=== PATIENT | female | born 1990 | race Caucasian/White ===

== ENCOUNTER → 2019-02-21 | Outpatient (CLI) | payer BC ==
--- NOTE | 2019-02-21 10:43 | MM ---
Reason for exam: screening (asymptomatic). Last mammogram was performed 9 years and 8 months ago. History: Family history of premenopausal breast cancer in sister at age 23 and breast cancer in paternal aunt. Taking hormonal contraceptives for 3 years beginning at age 16. Physical Findings: A clinical breast exam by your physician is recommended on an annual basis and results should be correlated with mammographic findings. MG 3D Screening Mammo W/Cad Bilateral CC and MLO view(s) were taken. Prior study comparison: June 27, 2009, left breast digital mammogram. February 08, 2007, bilateral anna screening mammogram, performed at [facility]. The breast tissue is heterogeneously dense. This may lower the sensitivity of mammography. No suspicious abnormality. No significant changes when compared with prior studies. ASSESSMENT: Negative, BI-RAD 1 RECOMMENDATION: Routine screening mammogram of both breasts in 1 year.
== END | disposition home or self-care (01) ==
LOC: RADMAMWWP 08:54
PROVIDERS: ATTEND Internal Medicine
DX: Z12.31 Encounter for screening mammogram for malignant neoplasm of breast (principal); Z84.81 Family history of carrier of genetic disease
CPT/HCPCS: 77063; 77067

== ENCOUNTER → 2021-02-03 | Outpatient (CLI) | payer BC ==
--- NOTE | 2021-02-04 06:51 | US ---
EXAMINATION TYPE: US kidneys/renal and bladder DATE OF EXAM: 02/03/2021 COMPARISON: CT March 25, 2014. Ultrasound kidneys March 14, 2015 CLINICAL HISTORY: R93.41 Abnormal findings on imaging. EXAM MEASUREMENTS: Right Kidney: 9.8 x 3.5 x 3.5 cm Left Kidney: 10.1 x 4.3 x 3.9 cm Right Kidney: No hydronephrosis or masses seen Left Kidney: Hydronephrosis vs. dilated renal pelvis. Bladder: anechoic Bilateral Jets seen: No just left jet. Mild fullness right renal pelvis extends into calyces. More moderate fullness left renal pelvis wit hout significant calyceal dilatation. Urinary bladder satisfactorily distended. IMPRESSION: Suspect new mild right-sided hydronephrosis. Redemonstration of more prominent but suspec deion extrarenal pelvis on the left. Consider follow-up.
== END | disposition home or self-care (01) ==
LOC: RADUSWWP 16:06
PROVIDERS: ATTEND Urology
DX: N13.30 Unspecified hydronephrosis (principal)
CPT/HCPCS: 76770

== ENCOUNTER → 2022-05-19 | Outpatient (CLI) | payer BC ==
--- NOTE | 2022-05-19 12:46 | XR ---
EXAMINATION TYPE: XR chest 2V DATE OF EXAM: 05/19/2022 COMPARISON: NONE HISTORY: Shortness of breath TECHNIQUE: Frontal and lateral views of the chest are obtained. FINDINGS: There is no focal air space opacity, pleural effusion, or pneumothorax seen. The cardiac silhouette size is within normal limits. The osseous structures are intact. IMPRESSION: No acute cardiopulmonary process.
== END | disposition home or self-care (01) ==
LOC: RADXRYALE 10:08
PROVIDERS: ATTEND Physician Assistant
DX: R06.02 Shortness of breath (principal)
CPT/HCPCS: 71046

== ENCOUNTER → 2022-06-12 | Outpatient (CLI) | payer BC ==
--- NOTE | 2022-06-12 12:42 | CA ---
Transthoracic Echo Report Name: Anne Rob Age: 32 Gender: F : 1990 Exam Date: 06/12/2022 10:47 Exam Location: [place] [facility] Ht (in): 64 Wt (lb): 160 Ordering Physician: Arturo Rosa DO Attending/Referring Phys: Marnie Leon PAC Professional Employer Consultant Greta Cordova RDCS Procedure CPT: Indications: R06.02 SHORTNESS OF BREATH Cardiac Hx: Technical Quality: Good Contrast 1: Total Dose (mL): Contrast 2: Total Dose (mL): MEASUREMENTS (Male / Female) Normal Values 2D ECHO LV Diastolic Diameter PLAX 4.4 cm 4.2 - 5.9 / 3.9 - 5.3 cm LV Systolic Diameter PLAX 2.9 cm IVS Diastolic Thickness 0.7 cm 0.6 - 1.0 / 0.6 - 0.9 cm LVPW Diastolic Thickness 0.8 cm 0.6 - 1.0 / 0.6 - 0.9 cm LV Relative Wall Thickness 0.3 RV Internal Dim ED PLAX 2.4 cm LA Systolic Diameter LX 2.6 cm 3.0 - 4.0 / 2.7 - 3.8 cm LA Volume 35.0 cm??? 18 - 58 / 22 - 52 cm??? M-MODE Aortic Root Diameter MM 2.7 cm MV E Point Septal Separation 0.4 cm AV Cusp Separation MM 2.1 cm DOPPLER AV Peak Velocity 129.3 cm/s AV Peak Gradient 6.7 mmHg MV Area PHT 3.3 cm??? Mitral E Point Velocity 92.8 cm/s Mitral A Point Velocity 58.3 cm/s Mitral E to A Ratio 1.6 MV Deceleration Time 227.0 ms MV E' Velocity 13.2 cm/s Mitral E to MV E' Ratio 7.0 FINDINGS Left Ventricle Normal left ventricular size, wall thickness, systolic function with no obvious regional wall motion abnormalities. Normal left ventricular diastolic filling pattern for age. The ejection fraction is visually estimated at 55-60 %. Right Ventricle Normal right ventricular size. Right Atrium The right atrium is normal in size. Left Atrium The left atrium is normal in size. Mitral Valve Structurally normal mitral valve without significant stenosis or prolapse. Trace mitral regurgitation. Aortic Valve Structurally normal aortic valve without significant sclerosis or stenosis. There is no aortic regurgitation. Tricuspid Valve Structurally normal tricuspid valve without significant stenosis.trace tricuspid regurgitation. Pulmonic Valve Structurally normal pulmonic valve without significant stenosis. There is no pulmonic regurgitation. Pericardium Normal pericardium without effusion. Aorta Normal aortic root dimension. CONCLUSIONS 1. Normal left ventricle size and systolic function 2. Trace mitral and tricuspid regurgitation Previewed by: Dr. Jolanta Sánchez MD (Electronically Signed) Final Date: 12 June 2022 12:41
== END | disposition home or self-care (01) ==
LOC: RADECHMAIN 10:42
PROVIDERS: ATTEND Family Medicine
DX: R06.02 Shortness of breath (principal)
CPT/HCPCS: 93306

== ENCOUNTER 2024-02-18 15:00 | Observation (INO) | payer BC ==
[2024-02-18 16:47] LABS: Appearance,Urine Cloudy (Clear); Bacteria,Urine Rare /hpf; Bilirubin,Urine Negative (Negative); Blood,Urine Negative (Negative); Color,Urine Colorless; Glucose,Urine (UA) Negative (Negative); Ketones,Urine Negative (Negative); Leukocyte Esterase,Urine Large (Negative); Mucus,Urine Rare /hpf; Nitrite,Urine Negative (Negative); Protein,Urine Negative (Negative); RBC,Urine 1 /hpf (0-5); Specific Gravity,Urine 1.006 (1.001-1.035); Squamous Epithelial Cell,Urine 4 /hpf (0-4); Urobilinogen,Urine <2.0 mg/dL (<2.0); WBC,Urine 37 /hpf (0-5)
[2024-02-18] MEDS: LACTATED RINGERS 1,000 ML IV ONE (18:42)
[2024-02-18] MEDS ORDERED: TERBUTALINE 1 MG/ML VIAL SQ PRN (20:31)
[2024-02-18] MEDS ORDERED: miSOPROStoL 200 MCG TAB PO PRN (20:31)
[2024-02-18] MEDS ORDERED: METHYLERGONOVINE 0.2 MG/ML 1 ML AMP IM PRN (20:31)
[2024-02-18 20:41] LABS: Basophils % (A) 0 %; Eosinophils % (A) 0 %; HCT 36.5 % (34.0-46.0); HGB 11.6 gm/dL (11.4-16.0); Hypochromasia Slight; Lymphocytes # (A) 2.2 k/uL (1.0-4.8); Lymphocytes % (A) 19 %; MCH 28.6 pg (25.0-35.0); MCHC 31.9 g/dL (31.0-37.0); MCV 89.6 fL (80.0-100.0); Mean Platelet Volume 8.4; Monocytes # (A) 0.5 k/uL (0-1.0); Monocytes % (A) 5 %; Neutrophils # (A) 8.5 k/uL (1.3-7.7); Neutrophils % (A) 75 %; Platelet Count 276 k/uL (150-450); RBC 4.08 m/uL (3.80-5.40); RDW 13.7 % (11.5-15.5); WBC 11.3 k/uL (3.8-10.6)
[2024-02-18 22:14] VITALS: RESP 16
--- NOTE | 2024-02-19 06:25 | P.HPOB ---
History of Present Illness H&P Date: 02/19/24 Chief Complaint: painful contractions Ms. Rob is a 34 year old at 36 weeks and 0 days with EDC of 03/18/2024 by 10 week US not consistent with LMP who presents with a history of regular contractions. While in triage the patient endorses good movement, denies leakage of fluid, and denies vaginal bleeding. The patient was checked in triage and was dilated to 1/50/-3. She did not make cervical mold changer the next 2 hours, however she continued to contract every 3-5 minutes. She rated her pain a 5. She was observed overnight with continuous monitoring. This morning, the contractions have spaced out to every 9-10 minutes. The patient states that she was able to get some sleep. She states that all contractions are painful, but some are. The has been complicated by recurrent urinary tract infections for which she has taken multiple courses of antibiotics. On admission, the patient had a urinalysis consistent with urinary tract infection. The patient is s/p top right nephrectomy and bladder reconstruction. She states that she has chronic UTIs outside of as well. The patient does not have leukocytosis, is afebrile, and does not have CVA tenderness. The fetus measured in the 29%ile based on a 31 week growth US. The patient has a history of 2 FTVD followed by a vaginal delivery at 36 weeks for PPROM with footling breech presentation. During the section, the patient did sustain a bladder injury which required repair. Finally, the patient has a past medical history significant for guillian barre syndrome. Past Medical History Additional Past Medical History / Comment(s): OB history: She's had 2 previous vaginal deliveries since her third . She's had care with Dr. Brush since 10 weeks gestation. Blood type is A+, antibodies negative, rubella nonimmune, hepatitis B negative, RPR nonreactive. GBS positive. History of Any Multi-Drug Resistant Organisms: None Reported Additional Past Surgical History / Comment(s): 27 surgeries total on bladder and kidneys, including a partial nephrectomy. These were done as an due to prematurity, she was born at 26 weeks gestation. Past Anesthesia/Blood Transfusion Reactions: No Reported Reaction Smoking Status: Never smoker Past Drug Use History: None Reported Medications and Allergies Home Medications Medication Instructions Recorded Confirmed Type Pnv,Calcium 72/Iron/Folic Acid 1 tab PO DAILY 11/23/16 02/18/24 History [ Plus Tablet] Allergies Allergy/AdvReac Type Severity Reaction Status Date / Time oxybutynin [From Ditropan] Allergy Anaphylaxis Verified 02/18/24 15:34 Exam Vital Signs Temp Pulse Resp BP 02/18/24 20:00 98.4 F 82 16 127/77 Intake and Output 02/18/24 02/18/24 02/19/24 14:59 22:59 06:59 Intake Total 400 Balance 400 Intake: Oral 400 Other: # Voids 2 Weight 90.718 kg Focused physical exam is performed. This is a healthy-appearing in no apparent distress. Breathing is non-labored. Abdomen is gravid and non-tender. Cervical exam is stable at 1/50/-3. Extremities non-tender and non-edematous. heart tones are reactive and reassuring, contractions are every 8-10 minutes. Results Result Diagrams: 02/18/24 18:30 Abnormal Lab Results - Last 24 Hours (Table) 02/18/24 02/18/24 Range/Units 16:24 18:30 WBC 11.3 H (3.8-10.6) k/uL Neutrophils # 8.5 H (1.3-7.7) k/uL Urine Appearance Cloudy H (Clear) Ur Leukocyte Esterase Large H (Negative) Urine WBC 37 H (0-5) /hpf Urine Bacteria Rare H (None) /hpf Urine Mucus Rare H (None) /hpf Assessment and Plan Assessment: 34 year old at 36 weeks and 0 days with contractions, stable cervical exam overnight Plan: Will discharge home, given stable cervical exam. Patient lives 25 minutes away. Counseled to return to L&D for contractions every 3-5 minutes for an hour. All questions anwered. Will send Augmentin rx to patient's pharmacy for UTI. Urine cx pending. Time with Patient: Less than 30
[2024-02-19 08:12] VITALS: BP 107/70; PULSE 67; TEMP 97.4
== END 2024-02-19 08:10 | disposition home or self-care (01) ==
LOC: FBPOP 15:00 → 4FBP 20:09 → INTOOBSV 20:09 → UNDODISOB 02-19 08:10 → UNDODISIN 02-19 08:10
PROVIDERS: ADMIT Obstetrics & Gynecology; ATTEND Obstetrics & Gynecology
DX: O60.03 Preterm labor without delivery, third trimester (principal); O99.820 Streptococcus B carrier state complicating pregnancy; O09.213 Supervision of pregnancy with history of pre-term labor, third trimester; O23.43 Unspecified infection of urinary tract in pregnancy, third trimester; O34.211 Maternal care for low transverse scar from previous cesarean delivery; Z3A.36 36 weeks gestation of pregnancy; Z90.5 Acquired absence of kidney; Z88.8 Allergy status to other drugs, medicaments and biological substances; Z86.69 Personal history of other diseases of the nervous system and sense organs; Z87.440 Personal history of urinary (tract) infections
CPT/HCPCS: 59025; 99213; 96361; 96365; 86900; 86901; 85025; 86850; 81001; 87086; 87077; 87186; G0378 ×2; J0696

== ENCOUNTER 2024-03-07 06:41 | Inpatient (IN) | payer BC, OTHER ==
[2024-03-07] MEDS ORDERED: OXYTOCIN 10 UNIT/ML 1 ML VIAL IM PRN ×2 (08:42→09:38)
[2024-03-07] MEDS ORDERED: METHYLERGONOVINE 0.2 MG/ML 1 ML AMP IM PRN ×2 (08:42→09:38)
[2024-03-07] MEDS ORDERED: miSOPROStoL 200 MCG TAB PO PRN ×2 (08:42→09:38)
[2024-03-07] MEDS ORDERED: TRANEXAMIC 1,000 MG/100ML-NACL 1,000 MG in EMPTY BAG 1 BAG IV PRN ×2 (08:42→09:38)
[2024-03-07] MEDS ORDERED: TERBUTALINE 1 MG/ML VIAL SQ PRN (08:42)
[2024-03-07] MEDS ORDERED: CARBOPROST TROMETHAMINE 250 MCG/ML 1 ML AMP IM PRN ×2 (08:42→09:38)
[2024-03-07] MEDS ORDERED: LIDOCAINE 0.5% (PF) 5 MG/ML (50 ML SDV) SQ PRN (08:42)
[2024-03-07] MEDS: LACTATED RINGERS 1,000 ML IV SCH ×2 (08:45→11:36)
--- NOTE | 2024-03-07 08:49 | P.HPOB ---
History of Present Illness H&P Date: 03/07/24 Chief Complaint: painful contractions Ms. Rob is a 34 year old at 38 weeks and 3 days gestation with EDC of 03/18/2024 by 10 week US who presents in labor with regular uterine contractions. She plans to TOLAC with this baby. Her has been complicated by recurrent urinary tract infections with E.Coli. The patient states that even before she has had chronic UTIs managed by her PCP. However, the patient herself has a history of Guillian [place] Syndrome. She also has a history of a top right nephrectomy with 2 bladder reconstructions. With her last delivery she has a due to breech presentation and suffered a bladder injury during the surgery which was repaired at the time of the case by urology. Obstetric history: 2 FTVD, 1 PTCS 2/2 breech work-up: blood type A positive, antibody negative, rubella immune, VDRL non-reactive, HBsAg negative, HIV negative, HCV Ab non-reactive, 1 hour GTT within normal limits, GBS negative. Past Medical History Additional Past Medical History / Comment(s): OB history: She's had 2 previous vaginal deliveries since her third . She's had care with Dr. Brush since 10 weeks gestation. Blood type is A+, antibodies negative, rubella nonimmune, hepatitis B negative, RPR nonreactive. GBS positive. History of Any Multi-Drug Resistant Organisms: None Reported Additional Past Surgical History / Comment(s): 27 surgeries total on bladder and kidneys, including a partial nephrectomy. These were done as an due to prematurity, she was born at 26 weeks gestation. Past Anesthesia/Blood Transfusion Reactions: No Reported Reaction Smoking Status: Never smoker Medications and Allergies Home Medications Medication Instructions Recorded Confirmed Type Pnv,Calcium 72/Iron/Folic Acid 1 tab PO DAILY 11/23/16 02/18/24 History [ Plus Tablet] Allergies Allergy/AdvReac Type Severity Reaction Status Date / Time oxybutynin [From Ditropan] Allergy Anaphylaxis Verified 02/18/24 15:34 Exam Intake and Output 03/06/24 03/07/24 03/07/24 22:59 06:59 14:59 Other: Weight 91.172 kg Focused physical exam is performed. This is a healthy-appearing in no apparent distress. Breathing is non-labored. Abdomen is gravid and non-tender. Cervical exam is 5/100/bulging bag. Extremities non-tender and non-edematous. heart tones are Category I and tocometer is graphing contractions every 2- 4 minutes. Assessment and Plan Assessment: 34 year old at 38 weeks and 3 days presenting in labor after previous section Plan: Admit, NPO, expectant management, continuous EFM and tocometer, close monitoring of patient. TOLAC; patient aware of <1% risk of uterine rupture. Anticipate v aginal delivery.
[2024-03-07 09:21] LABS: Basophils # (A) 0.1 k/uL (0-0.2); Basophils % (A) 1 %; Eosinophils # (A) 0.1 k/uL (0-0.7); Eosinophils % (A) 1 %; HCT 38.4 % (34.0-46.0); HGB 12.2 gm/dL (11.4-16.0); Lymphocytes % (A) 17 %; MCH 27.7 pg (25.0-35.0); MCHC 31.7 g/dL (31.0-37.0); MCV 87.4 fL (80.0-100.0); Mean Platelet Volume 7.8; Monocytes # (A) 0.5 k/uL (0-1.0); Monocytes % (A) 4 %; Neutrophils # (A) 9.2 k/uL (1.3-7.7); Neutrophils % (A) 77 %; Platelet Count 281 k/uL (150-450); RDW 13.9 % (11.5-15.5); WBC 11.9 k/uL (3.8-10.6)
[2024-03-07] MEDS: CITRIC ACID-SODIUM CITRATE 15 ML CUP PO ONE ×2 (09:45→10:36)
[2024-03-07] MEDS ORDERED: NALBUPHINE 10 MG/ML (10 ML MDV) IV PRN (10:48)
[2024-03-07] MEDS ORDERED: NALOXONE 0.4 MG/ML 1 ML VIAL IV PRN ×2 (10:48→11:14)
[2024-03-07] MEDS ORDERED: diphenhydrAMINE 50 MG/ML 1 ML VIAL IVP PRN ×3 (10:48→11:14)
[2024-03-07] MEDS ORDERED: LANOLIN CREAM 1 GM TUBE TOPICAL PRN (11:14)
[2024-03-07] MEDS ORDERED: METOCLOPRAMIDE 5 MG/ML 2 ML VIAL IVP PRN (11:14)
[2024-03-07] MEDS ORDERED: SIMETHICONE 80 MG CHEWABLE PO PRN (11:14)
[2024-03-07] MEDS ORDERED: ONDANSETRON 4 MG/2 ML VIAL IVP PRN (11:14)
[2024-03-07] MEDS ORDERED: diphenhydrAMINE 50 MG CAP PO PRN (11:14)
[2024-03-07] MEDS ORDERED: diphenhydrAMINE 25 MG CAP PO PRN (11:14)
[2024-03-07] MEDS ORDERED: ZOLPIDEM 5 MG TAB PO PRN (11:14)
--- NOTE | 2024-03-07 11:14 | P.OP ---
Date of Procedure: 03/07/24 Preoperative Diagnosis: 1. Term IUP at 38 weeks and 3 days 2. Breech Presentation 3. Active Labor 4. History of prior section Postoperative Diagnosis: Same Procedure(s) Performed: Repeat Lower Transverse Section Implants: None Anesthesia: spinal Surgeon: Litzy Ashby Fire Range Technician #1: Zay Patiño Estimated Blood Loss (ml): 504 IV fluids (ml): 500 Urine output (ml): 250 (roddy-colored) Pathology: none sent Condition: stable Disposition: floor Indications for Procedure: Ms. Rob is a 34 year old at 38 weeks and 3 days who presented to labor and delivery in active labor. The patient desires TOLAC and was aware of the <1% risk of uterine rupture. The head was palpated but noted to be ballotable on arrival. The patient was dilated to 6 centimeters and 100% effacement witha bulging bag. AROM was undertaken with a large amount of clear fluid noted at 902. The patient quickly progressed to complete dilation. On re- examination of the cervix, legs were noted in the vagina. Bedside ultrasound was performed and the fetus was in breech presentation. section was recommended to the patient for maternal and well-being. The risks, benefits, and alternatives to section were discussed with the patient including risk of bleeding, infection, damage to surrounding structures including bladder/bowels/ureters, and post-operative VTE. The patient understands these risks and desires to proceed with section. 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 Normal bilateral fallopian tubes and ovaries. Description of Procedure: The patient was taken to the operating room where spinal anesthesia was found to be adequate. Two grams of Ancef were given for infection prophylaxis. She was prepared and draped in the dorsal supine position with a leftward tilt. A Pfannenstiel skin incision was made with the scalpel. The incision was carried down to the fascia with a bovie. The fascia was incised and extended laterally with Russ scissors. The superior aspect of the fascia was grasped with Diego clamps. The underlying rectus muscle was dissected off sharply with Russ scissors. In a similar fashion, the inferior aspect of the fascia was elevated with Diego clamps and the rectus muscle and pyramidalis were dissected off. Excellent hemostasis was achieved with the bovie. The rectus muscle was in the midline down to the level of the pubic symphysis. Pre- peritoneal fatty tissue was bluntly dissected to expose the peritoneum. The peritoneum was found to be free of adherent bowel and entered sharply with Russ scissors. The peritoneal incision was extended superiorly and inferiorly to the bladder reflection with good visualization of the bladder. The bladder blade was inserted and vesicouterine peritoneum was identified. Intraabdominal survey revealed scant, clear peritoneal fluid and the thinned-out lower uterine segment. The vesicouterine peritoneum was opened with scissors and the bladder flap was developed. The bladder blade was repositioned to keep the bladder out of the operative field. The lower uterine segment was incised with a scalpel. The amniotic sac was ruptured with an Allis clamp and clear fluid was noted. The uterine incision was extended bluntly with lateral and upward traction. The fetus was in complete breech position. The buttocks was palpated and delivered gradually through the hysterotomy. Fundal pressure was continued and both legs were extended using the Pinard maneuver. With gentle pressure the legs and body gradually delivered. Once the scapula could be seen the baby was gently rotated and both arms were delivered using the Loveseat maneuver. Maintaining head flexion in a modified [id number]-[id number] maneuver the head was delivered without difficulty. The mouth and nose were suctioned with a bulb. The cord was clamped and cut. was noted to be spontaneously crying. The was handed off to the telesales specialist. IV oxytocin was initiated to facilitate uterine contractions. The placenta was delivered intact with manual massage of uterine fundus. The uterus was then exteriorized and the inside of the uterus was gently wiped with a lap sponge to assure complete removal of placental membranes. The uterine incision was closed with a 0-Polysorb suture in a running locked fashion. A second imbricating layer of 0-Polysorb was placed along the incision. Additional figure of eight sutures were placed along the hysterotomy to facilitate hemostasis. The ovaries and tubes were found to be normal. The uterus, tubes, and ovaries were then gently returned to the abdominal cavity. The blood clots and fluid were wiped out of the abdomen and pelvis with moist laparotomy sponges. The pelvis was copiously suction irrigated. For bleeding prophylaxis, Surgicel Powder was placed along the hysterotomy and bladder flap. Interceed was placed along the uterus in an attempt to prevent adhesion reformation between the bladder and the anterior uterus. The uterine incision was reinspected and excellent hemostasis was noted. The fascial layer was closed with a 0-Vicryl suture. The subcutaneous tissue was reapproximated with 2-0 Plain Gut. The skin was closed with 4-0 Monocryl in a subcuticular fashion. The patient tolerated the procedure well. All the counts were correct times two. The patient was taken to the recovery room in a stable condition.
[2024-03-07] MEDS: KETOROLAC 15 MG/ML 1 ML VIAL IVP SCH (11:31)
[2024-03-07] MEDS: ACETAMINOPHEN TAB 500 MG TAB PO SCH (13:45)
[2024-03-07] MEDS: ONDANSETRON 4 MG/2 ML VIAL IVP PRN (16:36)
[2024-03-07] MEDS: IBUPROFEN 600 MG TAB PO SCH (18:00)
[2024-03-07] MEDS: SENNOSIDES-DOCUSATE SODIUM 1 EACH TAB PO SCH (22:57)
--- NOTE | 2024-03-08 07:39 | P.PN ---
Progress Note - Text Progress Note Date: 03/08/24 (7176) Anesthesia Postop day 1 Subjective: Status Post section with Duramorph. Patient seen and examined. Complains of mild pruritus. VAS 4 out of 10rest above. Denies nausea or vomiting. Denies fever. Gross lower extremity strength intact. Without apparent anesthetic complications. Objective: Vital signs reviewed Heart: Regular Rate Lungs: Good chest excursion Abdomen: Appears nondistended Assessment: Status post section with Duramorph postop day 1 Plan: 1. Continue current care with your medical management. Anticipated end to the duration of the Duramorph around surgery time today. You may see increased pain needs around this time. 2. This note was dictated using [employer] software. Please be advised there is a potential for misspellings or errors in onyx chip terrazzo worker.
[2024-03-08 07:44] LABS: Basophils % (A) 0 %; Eosinophils # (A) 0.1 k/uL (0-0.7); Eosinophils % (A) 1 %; HCT 31.9 % (34.0-46.0); HGB 10.1 gm/dL (11.4-16.0); Hypochromasia Slight; Lymphocytes # (A) 1.5 k/uL (1.0-4.8); Lymphocytes % (A) 11 %; MCH 28.2 pg (25.0-35.0); MCHC 31.6 g/dL (31.0-37.0); MCV 89.2 fL (80.0-100.0); Mean Platelet Volume 7.7; Monocytes # (A) 0.5 k/uL (0-1.0); Monocytes % (A) 4 %; Neutrophils # (A) 11.2 k/uL (1.3-7.7); Neutrophils % (A) 84 %; Platelet Count 263 k/uL (150-450); RBC 3.58 m/uL (3.80-5.40); RDW 14.1 % (11.5-15.5); WBC 13.3 k/uL (3.8-10.6)
--- NOTE | 2024-03-08 08:12 | P.PNOBGPC ---
Subjective - Subjective Principal diagnosis: s/p repeat section Interval history: The patient is doing well this morning and had no acute events overnight. She has no complaints this morning. She reports minimal lochia, passing flatus, voiding without difficulty, ambulating, and eating/drinking without nausea or vomiting. She is currently having difficulty with her latch today. She denies chest pain, shortness of breathing, fevers, or chills overnight. She denies pain or swelling in the legs. Patient reports: Reports appetite normal, Reports voiding normally, Reports pain well controlled, Reports ambulating normally : doing well Objective - Vital Signs Latest vital signs: Vital Signs Temp Pulse Resp BP Pulse Ox 03/08/24 07:44 97.7 F 60 16 108/69 97 03/08/24 07:00 16 03/08/24 06:00 64 16 03/08/24 04:30 98.0 F 64 16 112/70 98 03/08/24 00:00 97.8 F 61 16 99/62 97 03/07/24 23:00 16 03/07/24 21:00 16 03/07/24 20:00 97.4 F L 61 16 109/70 97 03/07/24 19:00 16 03/07/24 17:00 68 18 03/07/24 15:00 70 16 98 03/07/24 14:50 97.4 F L 76 16 112/76 98 03/07/24 13:48 62 98 03/07/24 12:50 62 16 103/74 98 03/07/24 12:35 68 16 102/75 99 03/07/24 12:20 63 16 102/55 99 03/07/24 12:05 61 16 121/59 100 03/07/24 11:50 73 16 113/67 99 03/07/24 11:48 18 99 03/07/24 11:35 68 16 91/55 98 03/07/24 11:20 62 16 100/56 98 03/07/24 11:05 86 16 106/56 98 03/07/24 10:50 96 F L 96 16 97/56 98 03/07/24 10:48 96 F L 95 16 97/56 98 03/07/24 08:53 97 F L 77 18 136/73 99 03/07/24 08:47 97 F L 91 16 142/77 Intake and Output 03/07/24 03/08/24 03/08/24 22:59 06:59 14:59 Intake Total 1000 Output Total 550 800 Balance 450 -800 Intake: IV 1000 Output: Urine 550 800 Uretheral (Wu) 200 Other: Voiding Method Indwelling Catheter # Voids 1 1 - Exam Extremities: Present: normal Abdomen: Present: normal appearance, soft Incision: Present: normal, dry, intact Uterus: Present: normal, firm - Labs Labs: Abnormal Lab Results - Last 24 Hours (Table) 03/07/24 03/08/24 Range/Units 08:54 07:27 WBC 11.9 H 13.3 H (3.8-10.6) k/uL RBC 3.58 L (3.80-5.40) m/uL Hgb 10.1 L (11.4-16.0) gm/dL Hct 31.9 L (34.0-46.0) % Neutrophils # 9.2 H 11.2 H (1.3-7.7) k/uL Assessment and Plan Assessment: 34 year old now POD#1 s/p repeat section for breech presentation in active labor Plan: 1. Postoperative. Patient meeting all post-operative milestones appropriately. Continue to monitor. 2. Viable femlae infant. Doing well at bedside. Dispo: Anticipate discharge home tomorrow on POD#2
[2024-03-09 08:06] VITALS: BP 115/73; PULSE 81; RESP 16; TEMP 98.5
--- NOTE | 2024-03-09 08:42 | P.DS ---
Providers Date of admission: 03/07/24 08:18 Expected date of discharge: 03/09/24 Attending physician: Litzy Ashby MD Primary care physician: Stated None Hospital Course: Ms. Rob is a 34 year old now POD#2 s/p repeat section during TOLAC for breech presentation in active labor. The surgery was uncomplicated and her course has also been uncomplicated. The patient is doing well this morning and had no acute events overnight. She has no complaints this morning. She reports minimal lochia, passing flatus, voiding without difficulty, ambulating, and eating/drinking without nausea or vomiting. doing well at bedside, nursing is going well. She denies chest pain, shortness of breathing, fevers, or chills overnight. She denies pain or swelling in the legs. Postoperative restrictions are reviewed with the patient including pelvic rest for 6 weeks, no lifting heavier than 15 pounds for 6 weeks. The patient is encouraged to call the office if she experiences any heavy bleeding, foul-smelling discharge, breast complaints, or any if she has any other concerns. She will follow up in the office in 2 weeks for postoperative exam. The patient will go home with a 3-day supply of Oxycodone as well as Motrin and Tylenol for pain. We have discussed that she should schedule Motrin and Tylenol every 6 hours, alternating. Oxycodone should only be used for breakthrough pain. All questions are answered. Assessment: 34 year old now POD#2 s/p repeat section for breech presentation in active labor Patient Condition at Discharge: Good Plan - Discharge Summary New Discharge Prescriptions: New Ibuprofen [Motrin] 600 mg PO Q6HR PRN #30 tab PRN Reason: Mild Pain (Scale 1 To 3) oxyCODONE HCL [Roxicodone] 5 mg PO Q6HR PRN 3 Days #12 tab PRN Reason: Breakthrough Pain Acetaminophen Tab [Tylenol] 650 mg PO Q6H PRN #30 tab PRN Reason: Mild Pain (Scale 1 To 3) No Action Pnv,Calcium 72/Iron/Folic Acid [ Plus Tablet] 1 tab PO DAILY Discharge Medication List Pnv,Calcium 72/Iron/Folic Acid [ Plus Tablet] 1 tab PO DAILY 11/23/16 [History] Acetaminophen Tab [Tylenol] 650 mg PO Q6H PRN #30 tab 03/09/24 [Rx] Ibuprofen [Motrin] 600 mg PO Q6HR PRN #30 tab 03/09/24 [Rx] oxyCODONE HCL [Roxicodone] 5 mg PO Q6HR PRN 3 Days #12 tab 03/09/24 [Rx] Follow up Appointment(s)/Referral(s): Litzy Ashby MD [STAFF PHYSICIAN] - 2 Weeks Activity/Diet/Wound Care/Special Instructions: Instructions 1. Do not begin any exercise program for 3 weeks. 2. Do not resume sexual relations for 6 weeks or longer if uncomfortable. 3. You may take tub baths or showers at any time. 4. You may use tampons if desired after 6 weeks. 5. Keep any areas repaired with stitches clean and dry. 6. If you are not nursing, wear a good fitting, supportive bra during the day and limit fluid intake for at least 1 week to prevent breast engorgement. 7. Call the office, , within the next week to make appointment for your 6 week checkup if it has not already been made. 8. Report any of the following occurrences to the doctor promptly: a. Heavy, excessive bleeding b. Chills, fever c. Burning or frequency of urination d. Pain or redness and breasts if nursing e. Increasing pain or swelling of vulva (stitches). In addition to the above instructions, the following additional should be followed: 1. No heavy lifting or straining (exercising) until after 6 week checkup. 2. Keep abdominal incision clean and dry: You may wear a dressing if more comfortable. 3. Make office appointment for 2 weeks after delivery date. Discharge Disposition: HOME SELF-CARE
== END 2024-03-09 10:00 | disposition home or self-care (01) | DRG 787 ==
LOC: FBPOP 06:41 → 4FBP 08:18
PROVIDERS: ADMIT Obstetrics & Gynecology; ATTEND Obstetrics & Gynecology
PROC: 10D00Z1 Extraction of Products of Conception, Low, Open Approach (ICD-10-PCS; principal; 2024-03-07 10:00)
PROC: 10907ZC Drainage of Amniotic Fluid, Therapeutic from Products of Conception, Via Natural or Artificial Opening (ICD-10-PCS; principal; 2024-03-07 10:00)
DX: O34.211 Maternal care for low transverse scar from previous cesarean delivery (principal); G61.0 Guillain-Barre syndrome; O99.12 Other diseases of the blood and blood-forming organs and certain disorders involving the immune mechanism complicating childbirth; O34.593 Maternal care for other abnormalities of gravid uterus, third trimester; O66.41 Failed attempted vaginal birth after previous cesarean delivery; O32.8XX0 Maternal care for other malpresentation of fetus, not applicable or unspecified; O99.824 Streptococcus B carrier state complicating childbirth; O99.73 Diseases of the skin and subcutaneous tissue complicating the puerperium; L29.9 Pruritus, unspecified; Z28.310 Unvaccinated for COVID-19; Z88.3 Allergy status to other anti-infective agents; Z87.440 Personal history of urinary (tract) infections; Z90.5 Acquired absence of kidney; Z3A.38 38 weeks gestation of pregnancy; Z37.0 Single live birth
CPT/HCPCS: 59025; 85025; 86850; 86900; 86901; 99213